=== PATIENT | female | born 1955 | race African-American/Black ===

== ENCOUNTER 2019-10-25 15:09 | Outpatient (CLI) | payer OTHER, SELFPAY ==
--- NOTE | ~2019-10-25 | US_ITS ---
EXAMINATION: US thyroid EXAM DATE: 10/25/2019 15:44 INDICATION: Nontoxic goiter. TECHNIQUE: Multiple grayscale and Doppler images of the thyroid were obtained (by a technologist who performed the scan) and subsequently reviewed. Individual nodules and recommendations may be reporte d in accordance with TI-RADS system as designated by the 2017 ACR White Paper TI-RADS committee. The re is no prior study for comparison. FINDINGS: Right thyroid lobe measures 5.1 x 2.8 x 2.4 cm, the left measuring 4.1 x 2.1 x 1.5 cm. There are mult iple thyroid nodules. Largest nodule (or conglomerate of 2 contiguous nodules) is in the right thyroid lobe measuring 2.8 x 2.3 x 2.3 centimeters, solid (2 points), isoechoic (1 point), wider than tall, smooth margin, withou t echogenic foci, category TR3 for this nodule. The 2 largest left thyroid lobe nodules have spongiform appearance most consistent with colloid cysts , largest measuring 2.0 x 2.4 x 1.1 cm. IMPRESSION: Multinodular goiter. Consider ultrasound-guided biopsy of the largest right thyroid lobe nodule. Reviewed, dictated and finalized at location A. IMPRESSION: Multinodular goiter. Consider ultrasound-guided biopsy of the large st right thyroid lobe nodule.
== END 2019-10-25 15:10 | disposition home or self-care (01) ==
PROVIDERS: PCP Family Medicine; Visit Provider Family Medicine
DX: E04.2 Nontoxic multinodular goiter (principal)
CPT/HCPCS: 76536

== ENCOUNTER 2019-11-01 13:12 | Outpatient (CLI) | payer OTHER, SELFPAY ==
--- NOTE | ~2019-11-01 | US_ITS ---
EXAMINATION: US FNA w image guidance DATE: 11/01/2019 14:12 INDICATION: Nontoxic multinodular goiter. TECHNIQUE: The procedure and its benefits, risks, and benefits were discussed with the patient. Risks specifical ly discussed included bleeding. The patient verbalized understanding of the risks and agreed to proce ed. The neck was prepped and draped in the usual sterile manner. 1% lidocaine was used for local ane sthesia. Five passes were made with a 25G needle into the lesion. Appropriate needle location was d ocumented with continuous sonographic guidance. There were no immediate complications. The patient u nderstood to call the ordering physician for results after a week and a half and verbalized that unde rstanding. FINDINGS: Grayscale ultrasound images demonstrate needles advanced into a 3.8 cm nodule in right thyroid lobe f or biopsy. IMPRESSION: 1. Ultrasound-guided fine needle aspiration of a right thyroid nodule. Reviewed, dictated and finalized at location A.
== END 2019-11-01 13:13 | disposition home or self-care (01) ==
PROVIDERS: Visit Provider Family Medicine
DX: E04.2 Nontoxic multinodular goiter (principal)
CPT/HCPCS: 10005; 88108; 88173; 88305

== ENCOUNTER 2019-12-14 11:03 | Emergency (ER) | payer OTHER, SELFPAY ==
--- NOTE | ~2019-12-14 | CT_ITS ---
EXAMINATION: CT abdomen pelvis w con EXAM DATE: 12/14/2019 13:04 INDICATION: Abdominal pain and distention. TECHNIQUE: Spiral CT of the abdomen and pelvis was performed following intravenous injection of 100 m L Omnipaque 350. Axial, coronal and sagittal images were reviewed. The dose-length product (DLP) fo r this examination was 810.39 mGy-cm. The exposure was tailored according to patient size (auto mA e xposure control), and iterative reconstruction (ASIR) was used as additional dose reduction technique . Correlation is made to CT pelvis from 04/14/2018. FINDINGS: Interval development of large complex cystic mass arising from the pelvis measuring 21 x 16 x 21 centimeters, likely cystic ovarian neoplasm. Again there is fibroid uterus. The liver, spleen, adrenal glands and pancreas are unremarkable. Gallbladder is unremarkable. No bi liary obstruction. Portal and splenic veins are patent. Kidneys enhance symmetrically. There is no hydronephrosis. The bladder is unremarkable. There is no retroperitoneal or pelvic lymphadenopath y. The appendix is normal. The stomach and small bowel are unremarkable. There is expected amount of c olonic stool. No free intraperitoneal gas. The heart is normal in size. There are no pericardial or pleural effusions. The lung bases are unremarkable. There are no osteoblastic or osteolytic les ions identified. IMPRESSION: 1. Complex cystic pelvic mass probably ovarian origin neoplasm measuring up to 21 cm. Recommend CANDY PACKER consult. 2. Fibroid uterus. Reviewed, dictated and finalized at location B.
[2019-12-14 11:09] VITALS: BP 160/90; PULSE 107; RESP 18; TEMP 36.6; O2SAT 95
[2019-12-14 11:21] LABS: Basophils Absolute Auto 0.1 K/mm3 (0.0-0.1); Basophils Percent Auto 0.7 % (0.2-1.2); Eosinophils Absolute Auto 0.7 K/mm3 (0-0.3); Hematocrit 38.2 % (37.0-47.0); Hemoglobin 11.8 g/dL (12.0-15.0); Immature Granulocyte Absolute 0.05 K/mm3 (0.00-0.031); Immature Granulocyte Percent A 0.4 % (0-0.5); Lymphocytes Absolute Auto 2.74 K/mm3 (0.9-3.2); Lymphocytes Percent Auto 22.6 % (18.3-44.2); Mean Corpuscular HGB Conc 30.9 g/dl (32-36); Mean Corpuscular Volume 84.3 fl (80-100); Mean Platelet Volume 11.2 fl (7.4-10.4); Monocytes Absolute Auto 0.8 K/mm3 (0.1-0.6); Monocytes Percent Auto 6.8 % (2.6-8.5); Neutrophils Absolute Auto 7.7 K/mm3 (1.3-6.7); Neutrophils Percent Auto 63.5 % (45.5-73.1); Platelet Count Result 353 k/mm3 (150-375); Red Blood Count 4.53 M/mm3 (4.2-5.4); Red Cell Distribution Width 13.2 % (11.5-14.5); White Blood Count 12.2 K/mm3 (4.5-10.0)
[2019-12-14 11:31] LABS: Add Urine Microscopic? YES; Appearance Urine Cloudy (Clear); Bacteria Urine Trace /hpf; Bilirubin Urine Negative (Negative); Blood Urine 2+ (Negative); Color Urine Yellow (Yellow); Glucose Urine UA Negative (Negative); Ketones Urine Negative (Negative); Leukocyte Esterase Ur 3+ LEU/UL (Negative); Mucus Urine Few /lpf; Nitrate Urine Negative (Negative); Protein Urine Negative (Negative); Specific Grav Ur 1.021 (1.001-1.035); Squamous Epithelial Cell Urine Many /hpf (Few); Urobilinogen Urine Negative mg/dL (<2.0); WBC Urine 21-30 /hpf
[2019-12-14 11:34] LABS: Alanine Aminotransferase 13 U/L (4-35); Albumin Level 4.4 g/dL (3.5-5.1); Alkaline Phosphatase 95 U/L (38-126); Aspartate Amino Transferase 21 U/L (14-36); Bilirubin,Total 0.2 mg/dL (0.2-1.3); Blood Urea Nitrogen 21 mg/dL (7-17); Calcium 9.3 mg/dL (8.4-10.2); Carbon Dioxide 25 mmol/L (22-30); Chloride 103 mmol/L (98-107); Estimated CRCL calculation 45 ml/min; Estimated Glomerular Filt Rate 55; Glucose 167 mg/dL (65-105); Lipase 196 U/L (23-300); Potassium 4.4 mmol/L (3.4-5.0); Sodium 137 mmol/L (137-145)
[2019-12-14 12:04] VITALS: BP 152/83; PULSE 111; RESP 20; O2SAT 99
--- NOTE | 2019-12-14 12:28 | ED.ABDPAIN ---
HPI - Abdominal Pain General Chief Complaint: Abdominal Pain Stated Complaint: abdominal pain Time Seen by Provider: 12/14/19 11:57 Source: patient Mode of arrival: ambulatory Limitations: no limitations History of Present Illness HPI narrative: This patient is a 64 year old female who presents for evaluation of abdominal pain and distension. She noticed in august she felt a knot in her lower abdomen. She has also developed abdominal distension and nausea. She denies fever, chills, diarrhea, urinary difficulties. Her last bowel movement was yesterday and it was normal . She has not gotten evaluation for this because she was afraid of COVID. MD elicited complaint: abdominal pain Related Data Allergies Allergy/AdvReac Type Severity Reaction Status Date / Time aspirin Allergy Intermediate Wheezing Verified 12/14/19 11:11 Review of Systems Review of Systems: All systems reviewed & are unremarkable except as noted in HPI and below Constitutional: Constitutional: Denies chills and Denies fever(s) Respiratory: Respiratory: Denies cough and Denies dyspnea Gastrointestinal: Gastrointestinal: Reports abdominal pain, Reports bloating and Reports nausea Genitourinary: Genitourinary: Reports no additional female genitourinary complaints [facility] Past Medical History Medical History (Updated 12/14/19 @ 15:09 by Mouna Doty MD) Hypertension Hypothyroid Surgical History Surgical History (Updated 12/14/19 @ 12:30 by Mouna Doty MD) History of ankle surgery Hx of tubal ligation Social History Social History (Updated 12/14/19 @ 12:30 by Mouna Doty MD) Smoking status: Never smoker Alcohol intake: current Drinks per week: 1 Gender identity (if verbalized by the patient): Female Exam Narrative: Exam Narrative: GENERAL: Well-appearing, well-nourished, and in no acute distress. HEAD: Normocephalic, atraumatic EYES: PERRLA and EOMI, conjunctiva clear without discharge NECK: Supple, RESPIRATORY: No respiratory distress, Airway patent, Respirations non-labored, Clear to auscultation without rales, rhonchi or wheeze HEART: Regular rate and rhythm. No murmur heard. Normal peripheral pulses. ABDOMEN: Soft, Distended, no fluid wave, mild lower tenderness, normal active bowel sounds. No rebound or guarding, No organomegaly. EXTREMITIES: No edema, normal strength with full range of motion. SKIN: Warm, dry, normal color without rash NEURO: Alert and oriented x3. CN 2-12 grossly intact. No focal deficits. PSYCH: Normal mood and affect. Course Consultations Consultation #1: I spoke with Dr. Swift, Security Threat Analyst, associate professor of economics for Dr. Greenwood. She states if patient is stable she can follow up with Dr. Greenwood. She request we fax patient visit information to office. I have discussed with patient and she is agreeable to discharge. Date: 12/14/19 Time: 15:06 Vital Signs Vital signs: Vital Signs Temperature 97.9 F 12/14/19 11:09 Pulse Rate 107 H 12/14/19 11:09 Respiratory Rate 18 12/14/19 11:09 Blood Pressure 160/90 H 12/14/19 11:09 Pulse Oximetry 95 12/14/19 11:09 Temperature 97.9 F 12/14/19 11:09 Pulse Rate 117 H 12/14/19 15:23 Respiratory Rate 20 12/14/19 15:23 Blood Pressure 160/80 H 12/14/19 15:23 Pulse Oximetry 99 12/14/19 15:23 MDM - Abdominal Pain Lab Data Attestation: I reviewed the patient's lab results. Result diagrams: 12/14/19 11:11 12/14/19 11:11 Labs: Lab Results 12/14/19 12/14/19 12/14/19 Range/Units 11:11 11:11 11:19 WBC 12.2 H (4.5-10.0) K/mm3 RBC 4.53 (4.2-5.4) M/mm3 Hgb 11.8 L (12.0-15.0) g/dL Hct 38.2 (37.0-47.0) % MCV 84.3 (80-100) fl MCH 26.0 (26-34) pg MCHC 30.9 L (32-36) g/dl RDW 13.2 (11.5-14.5) % Plt Count 353 (150-375) k/mm3 MPV 11.2 H (7.4-10.4) fl Immature Gran % (Auto) 0.4 (0-0.5) % Neut % (Auto) 63.5 (45.5-73.1) %
[2019-12-14 13:29] LABS: Lactic Acid Reflex 0.9 mmol/L (0.7-2.1)
[2019-12-14] MEDS: MORPHINE SULFATE 4 MG/ML INJ IV PUSH (14:13)
[2019-12-14] MEDS: ONDANSETRON INJ 4 MG/2 ML VIAL IV PUSH (14:13)
[2019-12-14 14:17] VITALS: BP 151/94; PULSE 113; RESP 20; O2SAT 99
[2019-12-14 15:23] VITALS: BP 160/80; PULSE 117; RESP 20; O2SAT 99
== END 2019-12-14 15:24 | disposition home or self-care (01) ==
PROVIDERS: Emergency Medicine; Emergency Provider General Practice; PCP Family Medicine
DX: D49.89 Neoplasm of unspecified behavior of other specified sites (principal); I10 Essential (primary) hypertension; E03.9 Hypothyroidism, unspecified
CPT/HCPCS: 36415; 74177; 80053; 81001; 83605; 83690; 85025; 87077; 87086; 87088; 96374; 96375; 99284; J2270; J2405; Q9967

== ENCOUNTER 2020-01-28 08:20 | Outpatient (CLI) | payer OTHER, SELFPAY ==
--- NOTE | ~2020-01-28 | MM_ITS ---
EXAMINATION: MM screening nora BI w raeann HISTORY: Screening TECHNIQUE: Craniocaudal and mediolateral oblique 3-D tomosynthesis images were obtained and synthetic 2-D images were generated. CAD analysis was submitted and interpreted. COMPARISON: Comparison to multiple prior studies sequentially, with oldest reviewed study dated 01/20. BREAST PARENCHYMAL COMPOSITION: There are scattered areas of fibroglandular density. FINDINGS: Stable architectural distortion in the left breast. There is no evidence of suspicious mass , calcification, or architectural distortion to suggest malignancy in either breast. There has been n o suspicious interval change. IMPRESSION: 1. No mammographic evidence of malignancy. 2. Recommend routine screening mammography in one year. BI-RADS Category 1: Negative Reviewed, dictated and finalized at location A.
== END 2020-01-28 08:21 | disposition home or self-care (01) ==
LOC: ANHIMG 08:22
PROVIDERS: PCP Family Medicine; Visit Provider Family Medicine
DX: Z12.31 Encounter for screening mammogram for malignant neoplasm of breast (principal)
CPT/HCPCS: 77063; 77067

== ENCOUNTER 2020-05-04 13:00 | Outpatient (CLI) | payer OTHER, SELFPAY ==
[2020-05-04 14:04] LABS: Hemoglobin A1C 6.3 % (<5.7)
== END 2020-05-04 13:01 | disposition home or self-care (01) ==
LOC: ANHLAB 13:06
PROVIDERS: PCP Family Medicine; Visit Provider Family Medicine
DX: E11.9 Type 2 diabetes mellitus without complications (principal)
CPT/HCPCS: 36415; 83036

== ENCOUNTER 2021-04-19 09:04 | Outpatient (CLI) | payer MEDICARE, SELFPAY ==
--- NOTE | ~2021-04-19 | MM_ITS ---
EXAMINATION: MM screening nora BI w raeann HISTORY: Screening mammogram TECHNIQUE: Craniocaudal and mediolateral oblique 3-D tomosynthesis images were obtained and synthetic 2-D images were generated. CAD analysis was submitted and interpreted. COMPARISON: 01/28/2020, 01/26/2019, 01/20/2018 bilateral screening mammogram examinations BREAST PARENCHYMAL COMPOSITION: There are scattered areas of fibroglandular density. FINDINGS: Volume loss of left breast, surgical clips and stable asymmetric spiculated density and arc hitectural distortion or retraction in the upper central left breast consistent with left partial mas tectomy for breast cancer. Findings appear stable since 01/28/2020. There is no evidence of interval suspicious mass, calcification, or new architectural distortion to s uggest malignancy in either breast. There has been no suspicious interval change. IMPRESSION: 1. Status post left partial mastectomy for breast cancer; no evidence of interval malignancy or signi ficant change since 08/28/2019 2. Recommend routine screening mammography in one year. BI-RADS Category 2: Benign finding(s). Reviewed, dictated and finalized at location A. IMPRESSION: 1. Status post left partial mastectomy for breast cancer; no evidence of interv al malignancy or significant change since 08/28/2019 2. Recommend routine screening mammography in one year. BI-RADS Category 2: Benign finding(s).
== END 2021-04-19 09:05 | disposition home or self-care (01) ==
PROVIDERS: PCP Family Medicine; Visit Provider Family Medicine
DX: Z12.31 Encounter for screening mammogram for malignant neoplasm of breast (principal)
CPT/HCPCS: 77063; 77067

== ENCOUNTER 2021-12-03 09:49 | Outpatient (CLI) | payer MEDICARE, MEDICAID, SELFPAY ==
--- NOTE | ~2021-12-03 | US_ITS ---
EXAMINATION: US thyroid DATE: 12/03/2021 10:55 INDICATION: Nontoxic single thyroid nodule TECHNIQUE: Multiple ultrasound images of the thyroid were obtained. COMPARISON: 10/25/2019 FINDINGS: The right thyroid lobe measures 5.6 x 3.2 x 3.4 cm. The left thyroid lobe measures 3.9 x 1.7 x 1.8 c m. 4.3 x 3.0 x 3.1 cm wider than tall solid isoechoic nodule in the right thyroid which is wider moe n tall and without echogenic foci (TI-RADS 3, mildly suspicious , FNA if >=2.5 cm, annual followup is >=1.5 cm). 2.7 x 1.2 x 1.6 cm wider than tall spongiform nodule in the left thyroid lobe (TI-RADS 2, not suspicious, no FNA recommended). There is normal echotexture, echogenicity and vascular flow thr oughout the thyroid gland. IMPRESSION: 1. Multinodular goiter with no significant interval change in a TI-RADS 2 spongiform left thyroid nod ule or of the largest 4.3 cm solid TI RADS 3 right thyroid nodule, the latter with biopsy performed o n 11/01/2019 with pathology read as consistent with benign follicular nodule. Reviewed, dictated and finalized at location A. IMPRESSION: 1. Multinodular goiter with no significant interval change in a TI-RADS 2 spong iform left thyroid nodule or of the largest 4.3 cm solid TI RADS 3 right thyroi d nodule, the latter with biopsy performed on 11/01/2019 with pathology read as consistent with benign follicular nodule.
[2021-12-03 11:00] LABS: Hemoglobin A1C 6.4 % (<5.7)
[2021-12-03 11:03] LABS: Alanine Aminotransferase 18 U/L (6-35); Albumin Level 4.8 g/dL (3.5-5.1); Alkaline Phosphatase 116 U/L (38-126); Anion Gap 9 mmol/L (8-16); Aspartate Amino Transferase 29 U/L (14-36); Bilirubin,Total 0.5 mg/dL (0.2-1.3); Blood Urea Nitrogen 36 mg/dL (7-17); Calcium 9.6 mg/dL (8.4-10.2); Carbon Dioxide 24 mmol/L (22-30); Chloride 104 mmol/L (98-107); Cholesterol 159 mg/dL (0-200); Estimated Glomerular Filt Rate 36; Glucose 157 mg/dL (65-110); HDL Direct 74 mg/dL; Potassium 3.8 mmol/L (3.4-5.0); Sodium 137 mmol/L (137-145); Triglycerides 206 mg/dL (<150)
[2021-12-03 11:14] LABS: LDL Cholesterol Direct 45 mg/dL
[2021-12-03 11:34] LABS: Thyroid Stimulating Hormone Reflex < 0.015 uIU/mL (0.465-4.68)
[2021-12-03 12:14] LABS: Free T4 Free Thyroxine Reflex 1.18 ng/dL (0.78-2.19)
[2021-12-03 13:15] LABS: Total Triiodothyronine (T3) 1.17 NG/ML (0.97-1.69)
== END 2021-12-03 09:50 | disposition home or self-care (01) ==
PROVIDERS: PCP Family Medicine; Visit Provider Physician Assistant
DX: E78.5 Hyperlipidemia, unspecified (principal); E04.2 Nontoxic multinodular goiter; Z13.820 Encounter for screening for osteoporosis; E03.9 Hypothyroidism, unspecified; E11.9 Type 2 diabetes mellitus without complications
CPT/HCPCS: 36415; 76536; 80053; 80061; 83036; 84439; 84443; 84480

== ENCOUNTER 2022-04-22 15:05 | Outpatient (CLI) | payer MEDICARE, MEDICAID, SELFPAY ==
--- NOTE | ~2022-04-22 | DEXA_ITS ---
Bone Density Report Name: MAN MASON Age: 66 Sex: Female Ethnicity: White Date of : 1955 Indication: postmenopausal; screening for osteoporosis; asthma or emphysema; Referring Provider: BARTOLO, BOZENA Baker Study: Bone densitometry was performed. Exam Date: April 22, 2022 Accession number: [id number] Bone Density: Region BMD T-score Z-score Classification AP Spine(L1-L4) 0.980 -0.6 1.3 Normal Femoral Neck (Left) 0.845 0.0 1.6 Normal Total Hip (Left) 0.995 0.4 1.8 Normal Femoral Neck (Right) 0.863 0.1 1.7 Normal Total Hip (Right) 0.983 0.3 1.7 Normal Total Hip Mean 0.989 0.4 1.8 Normal World Health Organization criteria for BMD impression classify patients as: Normal (T-score at or above -1.0), Osteopenia (T-score between -1.0 and -2.5), or Osteoporosis (T-score at or below -2.5). 10-year Fracture Risk: FRAX not reported because: All T-scores for Spine Total, Hip Total, Femoral Neck at or above -1.0 Clinical Information Provided by Patient: Smokes Has 3 or more alcoholic drinks per day Has the following medical conditions: Asthma or Emphysema Patient maximum height was 65 Menopause Age: 50 Drinks caffeinated beverages Onset of menses at age 12 Number of children 2 Impression: The patient has normal bone mass. The patient has risk factors, including: smoking, excessive alcohol use. Discussion: BONE DENSITY IS ABOVE THE MINIMUM DESIRABLE LEVEL AT ALL SKELETAL SITES TESTED. This patient?s bone mineral density is above the minimum desirable level (T-score -1.0 or better) at all sites measured. The patient should follow a healthful lifestyle (good nutrition with adequate calcium and vitamin D, and appropriate weight-bearing exercise). Follow-Up: Consider repeating this study in 5 years or sooner if there is some new clinical indication. Reported by: CJ on 04/22/2022 3:42:00 PM. Reviewed, dictated and finalized at location Shannan VINSON
--- NOTE | ~2022-04-22 | MM_ITS ---
EXAMINATION: MM screening nora BI w raeann HISTORY: Screening TECHNIQUE: Craniocaudal and mediolateral oblique 3-D tomosynthesis images were obtained and synthetic 2-D images were generated. CAD analysis was submitted and interpreted. COMPARISON: Comparison to multiple prior studies sequentially, with oldest reviewed study dated 01/20. BREAST PARENCHYMAL COMPOSITION: Breast composed of scattered areas of fibroglandular density FINDINGS: The breasts are stable. No new masses, calcifications or architectural distortion to sugges t malignancy. Stable architectural distortion in the left breast consistent with previous lumpectomy site with follow-up radiation. IMPRESSION: 1. No evidence for malignancy in either breast. Stable bilateral mammogram. 2. Recommend routine screening mammography in one year. BI-RADS Category 2: Benign finding(s). Reviewed, dictated and finalized at location A.
== END 2022-04-22 15:06 | disposition home or self-care (01) ==
PROVIDERS: PCP Physician Assistant; Visit Provider Physician Assistant
DX: Z12.31 Encounter for screening mammogram for malignant neoplasm of breast (principal); Z78.0 Asymptomatic menopausal state
CPT/HCPCS: 77063; 77067; 77080

== ENCOUNTER 2022-05-01 10:40 | Outpatient (CLI) | payer MEDICARE, MEDICAID, SELFPAY ==
[2022-05-01 11:17] LABS: Basophils Absolute Auto 0.1 K/mm3 (0.0-0.1); Basophils Percent Auto 0.9 % (0.2-1.2); Eosinophils Absolute Auto 0.6 K/mm3 (0-0.3); Eosinophils Percent Auto 6.3 % (0-4.4); Hematocrit 41.2 % (37.0-47.0); Hemoglobin 12.5 g/dL (12.0-15.0); Immature Granulocyte Absolute 0.02 K/mm3 (0.00-0.031); Immature Granulocyte Percent A 0.2 % (0-0.5); Lymphocytes Absolute Auto 2.91 K/mm3 (0.9-3.2); Lymphocytes Percent Auto 33.1 % (18.3-44.2); Mean Corpuscular HGB Conc 30.3 g/dl (32-36); Mean Corpuscular Volume 85.7 fl (80-100); Mean Platelet Volume 11.3 fl (7.4-10.4); Monocytes Absolute Auto 0.5 K/mm3 (0.1-0.6); Monocytes Percent Auto 5.9 % (2.6-8.5); Neutrophils Absolute Auto 4.7 K/mm3 (1.3-6.7); Neutrophils Percent Auto 53.6 % (45.5-73.1); Platelet Count Result 268 k/mm3 (150-375); Red Blood Count 4.81 M/mm3 (4.2-5.4); Red Cell Distribution Width 14.3 % (11.5-14.5); White Blood Count 8.8 K/mm3 (4.5-10.0)
[2022-05-01 11:32] LABS: Albumin Level 4.8 g/dL (3.5-5.1); Anion Gap 16 mmol/L (8-16); Blood Urea Nitrogen 34 mg/dL (7-17); Calcium 9.5 mg/dL (8.4-10.2); Carbon Dioxide 24 mmol/L (22-30); Chloride 103 mmol/L (98-107); Estimated Glomerular Filt Rate 39; Glucose 148 mg/dL (65-110); Phosphorus 3.2 mg/dL (2.5-4.5); Potassium 3.8 mmol/L (3.4-5.0); Sodium 143 mmol/L (137-145)
[2022-05-01 11:37] LABS: Creatinine Urine 245.5 mg/dL; Total Protein Urine Random 20 mg/dL; Ur Ttl Prot Creatinine Ratio 0.08 mg/mg (0-0.20)
[2022-05-01 11:41] LABS: Parathyroid Intact 75.6 pg/mL (7.5-53.5)
[2022-05-01 12:36] LABS: Vitamin D 25 Hydroxy 37.7 ng/mL
== END 2022-05-01 10:41 | disposition home or self-care (01) ==
PROVIDERS: PCP Physician Assistant; Visit Provider Hospitalist
DX: N18.30 Chronic kidney disease, stage 3 unspecified (principal)
CPT/HCPCS: 36415; 80069; 82306; 82570; 83970; 84156; 85025

== ENCOUNTER 2022-09-26 12:29 | Outpatient (CLI) | payer MEDICARE, MEDICAID, SELFPAY ==
--- NOTE | 2022-09-26 12:42 | ECHO_ITS ---
Patient Info Name: Nettie Salazar Age: 67 years : 1955 Gender: Female Ht: 66 in Wt: 160 lbs BSA: 1.85 m2 HR: 77 bpm BP: 139 / 87 mmHg Technical Quality: Fair Exam Date: 09/26/2022 1:03 PM Exam Location: [facility] Patient Status: Outpatient Admit Date: 09/26/2022 Staff Ordering Physician: Adams Mullen DO Android Software Engineer: Tonya Herrera RDCS Attending Provider: Adams Mullen DO Referring Physician: Sebas TAVERAS; Exam Type: CA echo doppler color flow Study Info Indications R06.09 - Other forms of dyspnea Complete two-dimensional, color flow and Doppler transthoracic echocardiogram is performed. Summary 1. Complete two-dimensional, color flow and Doppler transthoracic echocardiogram is performed. 2. Left ventricular chamber dimension is normal. 3. Left ventricular systolic function is normal, estimated at 55-60%. 4. The left ventricular diastolic function is grade I diastolic dysfunction. 5. E/e' 9 is minimally elevated. 6. Global longitudinal strain is abnormal at -13.2%. 7. Left atrial chamber dimension is mildly enlarged. 8. There is trace aortic valve regurgitation. 9. No pulmonary hypertension, estimated pulmonary arterial systolic pressure is 19 mmHg. Left Ventricle E/e' 9 is minimally elevated. Global longitudinal strain is abnormal at -13.2%. Left ventricular chamber dimension is normal. Left ventricular systolic function is normal, estimated at 55-60%. The left ventricular diastolic function is grade I diastolic dysfunction. Right Ventricle Right ventricular chamber dimension is normal. Right ventricular systolic function is normal. Left Atria Left atrial chamber dimension is mildly enlarged. Right Atria Right atrial chamber dimension is normal. Aortic Valve The aortic valve is trileaflet. There is no aortic valve stenosis. There is trace aortic valve regurgitation. Pulmonic Valve There is no pulmonic regurgitation. Mitral Valve There is no mitral valve stenosis. There is no mitral valve regurgitation. Tricuspid Valve There is no tricuspid valve regurgitation. No pulmonary hypertension, estimated pulmonary arterial systolic pressure is 19 mmHg. Pericardium/Pleural There is no pericardial effusion. Inferior Vena Cava Normal inferior vena cava with >50% collapse upon inspiration consistent with normal right atrial pressure, 5 mmHg. Aorta The aortic root size at the sinus of Valsalva is normal. Left Ventricular Outflow Tract Name Value Normal LVOT 2D LVOT Diameter 1.9 cm LVOT Doppler LVOT Peak Gradient 4 mmHg LVOT Mean Gradient 2 mmHg LVOT VTI 20 cm LVOT VTI/AV VTI Ratio 0.9 LVOT Stroke Volume 56 ml LVOT CO 4.1 l/min LVOT CI 2.2 l/min/m2 Pulmonic Valve Name Value Normal
== END 2022-09-26 12:30 | disposition home or self-care (01) ==
LOC: ANHCARD 12:32
PROVIDERS: PCP Physician Assistant; Visit Provider Internal Medicine Cardiovascular Disease
DX: R06.09 Other forms of dyspnea (principal); I51.7 Cardiomegaly
CPT/HCPCS: 93306

== ENCOUNTER 2022-11-13 15:02 | Outpatient (CLI) | payer MEDICARE, MEDICAID, SELFPAY ==
--- NOTE | ~2022-11-13 | XR_ITS ---
EXAMINATION: XR chest 2V 11/13/2022 15:23 INDICATION: Dyspnea PROCEDURE: 2 view chest COMPARISON: Comparison to multiple prior studies sequentially, with oldest reviewed study dated 03/23. FINDINGS: The lungs are clear. The cardiomediastinal silhouette is within normal limits. There are no pleural effusions. There is no pneumothorax suspected. Prominent left nipple shadow. There is sc oliosis. IMPRESSION: 1: NO ACUTE CARDIOPULMONARY DISEASE. Reviewed, dictated and finalized at location B.
== END 2022-11-13 15:03 | disposition home or self-care (01) ==
PROVIDERS: PCP Physician Assistant; Visit Provider Physician Assistant
DX: R93.89 Abnormal findings on diagnostic imaging of other specified body structures (principal)
CPT/HCPCS: 71046

== ENCOUNTER 2023-02-03 15:28 | Outpatient (CLI) | payer MEDICARE, MEDICAID, SELFPAY ==
--- NOTE | ~2023-02-03 | US_ITS ---
EXAMINATION: US thyroid DATE: 02/03/2023 16:30 INDICATION: Goiter. TECHNIQUE: Multiple ultrasound images of the thyroid were obtained. COMPARISON: Ultrasound 12/03/2021, 10/25/19 FINDINGS: The right thyroid lobe measures 4.1 x 3.5 x 3.3 cm. The left thyroid lobe measures 4.5 x 1.8 x 1.5 c m. In the right thyroid lobe, there is a 4.1 cm solid, hypoechoic, wider than tall nodule with mayra h margin without echogenic foci (TI-RADS TR4), stable from 10/25/2019. Biopsy on 11/01/2019 was benign.. In the right thyroid lobe, there is an 11 mm solid, hypoechoic, wider than tall nodule with smooth m argin without echogenic foci (TR4), not seen on prior imaging. In the left thyroid lobe, there is a 2 .5 cm mixed cystic and solid, hypoechoic, wider than tall nodule with smooth margin without echogenic foci (TR3), stable from 10/25/19. IMPRESSION: 1. Multinodular goiter. Consider thyroid ultrasound in one year. Reviewed, dictated and finalized at location A.
== END 2023-02-03 15:29 | disposition home or self-care (01) ==
PROVIDERS: PCP Physician Assistant; Visit Provider Physician Assistant
DX: E04.2 Nontoxic multinodular goiter (principal)
CPT/HCPCS: 76536

== ENCOUNTER 2023-03-05 09:23 | Outpatient (CLI) | payer MEDICARE, MEDICAID, SELFPAY ==
[2023-03-05 10:55] LABS: Appearance Urine Clear (Clear); Bacteria Urine 4+ /hpf; Bilirubin Urine Negative (Negative); Blood Urine Negative (Negative); Color Urine Yellow (Yellow); Glucose Urine UA 3+ mg/dL (Negative); Ketones Urine Negative (Negative); Leukocyte Esterase Ur 1+ LEU/UL (NEGATIVE); Nitrate Urine Positive (Negative); Non Pathogenic Casts 0-2; Protein Urine Negative (Negative); RBC Urine 0-2 /hpf (0-2); Specific Grav Ur 1.022 (1.001-1.035); Squamous Epithelial Cell Urine Few /hpf (Few); Urobilinogen Urine 0.2 mg/dL (<2.0); WBC Urine 21-50 /hpf (0-3); pH Urine 6.5 (5.0-9.0)
[2023-03-05 10:55] LABS: Basophils Absolute Auto 0.1 K/mm3 (0.0-0.1); Eosinophils Absolute Auto 0.6 K/mm3 (0-0.3); Eosinophils Percent Auto 8.8 % (0-4.4); Hematocrit 38.2 % (37.0-47.0); Hemoglobin 11.8 g/dL (12.0-15.0); Immature Granulocyte Absolute 0.01 K/mm3 (0.00-0.031); Immature Granulocyte Percent A 0.1 % (0-0.5); Lymphocytes Absolute Auto 1.97 K/mm3 (0.9-3.2); Lymphocytes Percent Auto 28.8 % (18.3-44.2); Mean Corpuscular HGB Conc 30.9 g/dl (32-36); Mean Corpuscular Volume 84.3 fl (80-100); Mean Platelet Volume 11.5 fl (7.4-10.4); Monocytes Absolute Auto 0.4 K/mm3 (0.1-0.6); Monocytes Percent Auto 5.3 % (2.6-8.5); Neutrophils Absolute Auto 3.8 K/mm3 (1.3-6.7); Platelet Count Result 264 k/mm3 (150-375); Red Blood Count 4.53 M/mm3 (4.2-5.4); Red Cell Distribution Width 14.6 % (11.5-14.5); White Blood Count 6.9 K/mm3 (4.5-10.0)
[2023-03-05 10:57] LABS: Add Urine Microscopic? YES; Creatinine Urine 98.1 mg/dL; Total Protein Urine Random 8 mg/dL; Ur Ttl Prot Creatinine Ratio 0.08 mg/mg (0-0.20)
[2023-03-05 11:02] LABS: Albumin Level 4.4 g/dL (3.5-5.1); Anion Gap 11 mmol/L (8-16); Blood Urea Nitrogen 27 mg/dL (7-17); Calcium 9.4 mg/dL (8.4-10.2); Carbon Dioxide 28 mmol/L (22-30); Chloride 102 mmol/L (98-107); Estimated Glomerular Filt Rate 41; Glucose 144 mg/dL (65-110); Phosphorus 3.5 mg/dL (2.5-4.5); Potassium 4.4 mmol/L (3.4-5.0); Sodium 141 mmol/L (137-145)
[2023-03-05 11:21] LABS: Hemoglobin A1C 6.8 % (<5.7)
[2023-03-05 11:29] LABS: Vitamin D 25 Hydroxy 60.3 ng/mL
== END 2023-03-05 09:24 | disposition home or self-care (01) ==
PROVIDERS: PCP Physician Assistant; Visit Provider Hospitalist
DX: E11.9 Type 2 diabetes mellitus without complications (principal); N18.31 Chronic kidney disease, stage 3a
CPT/HCPCS: 36415; 80069; 81001; 82306; 82570; 83036; 83970; 84156; 85025

== ENCOUNTER 2023-06-30 13:30 | Outpatient (CLI) | payer MEDICARE, MEDICAID, SELFPAY ==
[2023-06-30 14:47] LABS: Thyroid Stimulating Hormone Reflex 0.216 uIU/mL (0.465-4.68)
[2023-06-30 15:26] LABS: Free T4 Free Thyroxine Reflex 1.42 ng/dL (0.78-2.19)
[2023-06-30 16:14] LABS: Total Triiodothyronine (T3) 1.39 NG/ML (0.97-1.69)
== END 2023-06-30 13:31 | disposition home or self-care (01) ==
PROVIDERS: PCP Physician Assistant; Visit Provider Physician Assistant
DX: E03.9 Hypothyroidism, unspecified (principal)
CPT/HCPCS: 36415; 84439; 84443; 84480

== ENCOUNTER 2023-10-01 09:03 | Outpatient (CLI) | payer MEDICARE, MEDICAID, SELFPAY ==
[2023-10-01 10:15] LABS: Basophils Absolute Auto 0.1 K/mm3 (0.0-0.1); Basophils Percent Auto 0.9 % (0.2-1.2); Eosinophils Absolute Auto 0.7 K/mm3 (0-0.3); Eosinophils Percent Auto 10.4 % (0-4.4); Hematocrit 39.7 % (37.0-47.0); Hemoglobin 12.3 g/dL (12.0-15.0); Immature Granulocyte Absolute 0.02 K/mm3 (0.00-0.031); Immature Granulocyte Percent A 0.3 % (0-0.5); Lymphocytes Absolute Auto 2.01 K/mm3 (0.9-3.2); Mean Corpuscular Hemoglobin 26.3 pg (26-34); Mean Platelet Volume 11.2 fl (7.4-10.4); Monocytes Absolute Auto 0.5 K/mm3 (0.1-0.6); Monocytes Percent Auto 7.2 % (2.6-8.5); Neutrophils Absolute Auto 3.4 K/mm3 (1.3-6.7); Neutrophils Percent Auto 51.2 % (45.5-73.1); Platelet Count Result 248 k/mm3 (150-375); Red Blood Count 4.67 M/mm3 (4.2-5.4); Red Cell Distribution Width 14.9 % (11.5-14.5); White Blood Count 6.7 K/mm3 (4.5-10.0)
[2023-10-01 10:18] LABS: Appearance Urine Clear (Clear); Bacteria Urine 3+ /hpf; Bilirubin Urine Negative (Negative); Blood Urine Negative (Negative); Color Urine Yellow (Yellow); Glucose Urine UA 3+ mg/dL (Negative); Ketones Urine Negative (Negative); Leukocyte Esterase Ur 1+ LEU/UL (Negative); Nitrate Urine Negative (Negative); Non Pathogenic Casts 0-2; Protein Urine Negative (Negative); RBC Urine 0-2 /hpf (0-2); Squamous Epithelial Cell Urine Occasional /hpf (Few); WBC Urine 51-100 /hpf (0-3); pH Urine 6.5 (5.0-9.0)
[2023-10-01 10:19] LABS: Add Urine Microscopic? YES
[2023-10-01 10:32] LABS: Albumin Level 4.4 g/dL (3.5-5.1); Anion Gap 9 mmol/L (4-12); Blood Urea Nitrogen 25 mg/dL (7-17); Calcium 9.4 mg/dL (8.4-10.2); Carbon Dioxide 28 mmol/L (22-30); Chloride 103 mmol/L (98-107); Estimated Glomerular Filt Rate 39; Glucose 142 mg/dL (65-110); Phosphorus 3.4 mg/dL (2.5-4.5); Potassium 4.2 mmol/L (3.4-5.0); Sodium 140 mmol/L (137-145)
[2023-10-01 10:44] LABS: Creatinine Urine 106.2 mg/dL; Total Protein Urine Random 12 mg/dL; Ur Ttl Prot Creatinine Ratio 0.11 mg/mg (0-0.20)
[2023-10-01 10:48] LABS: Hemoglobin A1C 6.7 % (<5.7)
[2023-10-01 11:34] LABS: Vitamin D 25 Hydroxy 33.9 ng/mL
== END 2023-10-01 09:04 | disposition home or self-care (01) ==
PROVIDERS: PCP Physician Assistant; Visit Provider Hospitalist
DX: N18.31 Chronic kidney disease, stage 3a (principal); N39.0 Urinary tract infection, site not specified; E11.8 Type 2 diabetes mellitus with unspecified complications
CPT/HCPCS: 36415; 80069; 81001; 82306; 82570; 83036; 83970; 84156; 85025; 87077; 87086; 87186

== ENCOUNTER 2023-10-03 07:34 | Outpatient (CLI) | payer MEDICARE, MEDICAID, SELFPAY ==
--- NOTE | ~2023-10-03 | MM_ITS ---
EXAMINATION: MM screening nora BI w raeann HISTORY: Screening TECHNIQUE: Craniocaudal and mediolateral oblique 3-D tomosynthesis images were obtained and synthetic 2-D images were generated. CAD analysis was submitted and interpreted. COMPARISON: Comparison to multiple prior studies sequentially, with oldest reviewed study dated 12/2019. BREAST PARENCHYMAL COMPOSITION: Not dense: There are scattered areas of fibroglandular density. FINDINGS: Stable lumpectomy site in the upper inner quadrant of the left breast. There is no evidence of suspicious mass, calcification, or architectural distortion to suggest malignancy in either breas t. There has been no suspicious interval change. IMPRESSION: 1. No mammographic evidence of malignancy. 2. Recommend routine screening mammography in one year. BI-RADS Category 2: Benign finding(s). Reviewed, dictated and finalized at location A.
== END 2023-10-03 07:35 | disposition home or self-care (01) ==
LOC: ANHIMG 07:37
PROVIDERS: PCP Physician Assistant; Visit Provider Physician Assistant
DX: Z12.31 Encounter for screening mammogram for malignant neoplasm of breast (principal)
CPT/HCPCS: 77063; 77067

== ENCOUNTER 2024-06-03 08:26 | Outpatient (CLI) | payer MEDICARE, MEDICAID, SELFPAY ==
[2024-06-03 10:12] LABS: Alanine Aminotransferase 18 U/L (6-35); Albumin Level 4.3 g/dL (3.5-5.1); Alkaline Phosphatase 117 U/L (38-126); Anion Gap 4 mmol/L (4-12); Aspartate Amino Transferase 26 U/L (14-36); Bilirubin,Total 0.5 mg/dL (0.2-1.3); Blood Urea Nitrogen 22 mg/dL (7-17); Calcium 9.2 mg/dL (8.4-10.2); Carbon Dioxide 32 mmol/L (22-30); Chloride 103 mmol/L (98-107); Cholesterol 197 mg/dL (0-200); Estimated Glomerular Filt Rate 49; Glucose 134 mg/dL (65-110); HDL Direct 76 mg/dL; Potassium 4.2 mmol/L (3.4-5.0); Sodium 139 mmol/L (137-145); Triglycerides 193 mg/dL (<150)
[2024-06-03 10:17] LABS: Hemoglobin A1C 7.2 % (<5.7)
[2024-06-03 10:23] LABS: LDL Cholesterol Direct 78 mg/dL
== END 2024-06-03 08:27 | disposition home or self-care (01) ==
PROVIDERS: PCP Physician Assistant; Visit Provider Internal Medicine Cardiovascular Disease
DX: E78.5 Hyperlipidemia, unspecified (principal); E11.9 Type 2 diabetes mellitus without complications
CPT/HCPCS: 36415; 80053; 80061; 83036

== ENCOUNTER 2024-11-23 11:54 | Outpatient (CLI) | payer MEDICARE, MEDICAID, SELFPAY ==
--- OUTSIDE RECORDS SUMMARY | 2024-11-23 11:59 | XMS_ITS | Clinical Summary ---
Author Organization [facility] Address [address] [address] Care Team Providers Care Rn Informatics Name Role Phone Hilda Richardson MD Primary Care Provider [phone] [facility],non-owned Affiliates and Associated Physician Practices is amultiple site organization consisting of ambulatory clinics and hospital sitesin [place], [place], [place] and [place]. This disclosure is being madepursuant to the Care Everywhere program and may not contain all information available regarding this patient. Last updated 18.[facility] Allergies Active Allergy Reactions Criticality Noted Date Comments Aspirin Shortness of Breath High 05/29/2015 Medications * Be aware that medications may not be up to date on this document. Alwaysverify current medications with the patient. SYMBICORT 160-4.5 MCG/ACT inhaler Inhale 2 puffs by mouth 2 times daily 9 Active albuterol (PROVENTIL;VENT ABHIJEET) (2.5 MG/3ML) 0.083% nebulizer solution Inhale 2.5 mg by mouth 5 Active acetaminophen (TYLENOL) 325 MG tablet Take 2 (two) tablets by mouth every 6 hours as needed for Fever or Pain 1 Active FLUoxetine (PROZAC) 20 MG capsule Take 1 (one) capsule by mouth once daily 30 capsule 2 Active levothyroxine (SYNTHROID) 100 MCG tablet Take 1 (one) tablet by mouth daily before breakfast 30 tablet 2 Active metoprolol succinate XL 24hr (TOPROL XL) 50 MG tablet Take 1 (one) tablet by mouth at bedtime 30 tablet 2 Active simvastatin (ZOCOR) 20 MG tablet Take 1 (one) tablet by mouth at bedtime 30 tablet 2 Active triamterene-hyd roCHLOROthiazid e (MAXZIDE-25) 37.5-25 MG tablet Take 1 (one) tablet by mouth once daily 30 tablet 2 Active oxyCODONE, immediate release, (ROXICODONE) 5 MG tablet 1 Active nicotine (NICODERM CQ) 14 MG/24HR patch every 24 hours Activ e Acetaminophen-C odeine 300-30 MG Take 1 tablet by mouth every 4 hours as needed Active metFORMIN (GLUCOPHAGE) 500 MG tablet 1 Active omeprazole (PRILOSEC) 20 MG capsule Take 1 (one) capsule by mouth daily before breakfast 30 capsule 2 Active losartan (COZAAR) 100 MG tablet Take 1 (one) tablet by mouth once daily 30 tablet 2 Active spironolactone (ALDACTONE) 25 MG tablet TAKE ONE OR TWO TABLETS BY MOUTH DAILY DIRECTED 30 tablet 2 Active Active Problems Problem Noted Date Diagnosed Date Abdominal pain, generalized 06/14/2021 Low hemoglobin 06/14/2021 Encounter for management of wound VAC 06/14/2021 Pre-op evaluation 05/28/2021 Vesicovaginal fistula 05/08/2020 Acute DVT (deep venous thrombosis) 01/21/2020 Ankle pain 01/21/2020 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 Overview (01/21/2020): Left side Hx of radiation Not seeing oncologist any more 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 Moderate asthma with acute exacerbation 06/03/20 18 Exertional shortness of breath 03/11/2017 Essential hypertension 03/11/2017 RUQ pain 01/28/2017 Tachycardia 01/28/2017 Hypokalemia 12/11/2016 Reactive depression (situational) 12/11/2016 Asthma, mild persistent 05/29/2015 Gastroesophageal reflux disease with esophagitis 04/27/2015 Tobacco abuse 03/26/2015 Type 2 diabetes mellitus without complication Post-operative pain Acute postoperative pulmonary insufficiency Mild protein-calorie malnutrition Gastroesophageal reflux disease GINA (acute kidney injury) Thyroid disease Acute blood loss as cause of postoperative anemi a Immunizations Immunization Administration Dates Next Due Covid Pfizer primary monoval ent 12+ yr 0.3mL Purple cap 12/04/2020,11/07/2020 Family History Medical History Relation Name Comments Cancer - Colon Sister Relation Name Status Comments Sister Social History Tobacco Use Types Packs/Day Years Used Date Smoking Tobacco: Every Day Cigarettes 0.3 50.5 Started: 05/28/1974 Smokeless Tobacco: Never Tobacco Cessation:Ready to Q uit: No; Counseling Given: No Comments:2 cigarettes per day Alcohol Use Standard Drinks/Week Comments Yes 5 (1 standard drink = 0.6 oz pur e alcohol) daily drink AUDIT-C Answer Date Recorded Q1: How often do you have a drink containing alcohol? 4 or more times a week 05/29/2021 Q2: How many drinks containi ng alcohol do you have on a typical day when you are drinking? 1 or 2 Q3: How often do you have si x or more drinks on one occasion? Never 05/29/2021 Comments No Sex and Gender Information Value Date Recorded Sex Assigned at Not on file Legal Sex Female 8:44 PM CDT Gender Identity Not on file Sexual Orientation Not on file Last Filed Vital Signs Vital Sign Reading Time Taken Comments Blood Pressure 142/83 08/01/2021 1:07 PM ASSESSMENT NURSE PRACTITIONER Pulse 93 08/01/2021 1:07 PM ASSESSMENT NURSE PRACTITIONER Temperature 36.6 C (97.8 F) 06/27/2021 1:22 PM ASSESSMENT NURSE PRACTITIONER Respiratory Rate 18 06/19/2021 1:32 PM ASSESSMENT NURSE PRACTITIONER Oxygen Saturation 99% 06/27/2021 1:22 PM ASSESSMENT NURSE PRACTITIONER Inhaled Oxygen Concentration - - Weight 64.9 kg (143 lb) 08/01/2021 1:07 PM ASSESSMENT NURSE PRACTITIONER Height 167.6 cm (5' 6) 08/01/2021 1:07 PM ASSESSMENT NURSE PRACTITIONER Body Mass Index 23.08 08/01/2021 1:07 PM ASSESSMENT NURSE PRACTITIONER Plan of Treatment Health Maintenance Due Date Last Done Comments BONE DENSITY TESTING 1955 COLOGUARD (AGES 45-75) - COLON CA SCREENING 1955 COLON MONITORING 1955 COLONOSCOPY - COLON CA SCREENING 1955 CT COLONOGRAPHY - COLON CA SCREENING 1955 Colorectal Cancer Screening 1955 FIT - COLON CA SCREENING 1955 FLEX SIG - COLON CA SCREENING 1955 MAMMOGRAM 1955 HEPATITIS C SCREENING 08/04/1973 DTAP/TDAP/TD VACCINES (1 - Tdap) 1974 PNEUMOCOCCAL VACCINE 50+ (1 of 2 - PCV) 1974 ZOSTER VACCINE (1 of 2) 2005 Respiratory Syncytial Virus (RSV) Vaccine Pt: or over 60 yrs (1 - Risk 60-74 years 1-dose series) 2015 DIABETES RETINOPATHY SCREENING 01/21/2020 DIABETES-FOOT EXAM WITH MONOFILAMENT 01/21/2020 DIABETES-HGB A1C 11/28/2021 05/30/2021, , 06/03/2018, Additional history exists DIABETES-SERUM CREATININE 06/17/20222020, 06/16/2021, 06/14/2021, Additional history exists COVID-19 VACCINE ( season) 2024 12/04/2020, 11/07/2020 DEPRESSION SCREENING 06/23/2024 DIABETES - URINE PROTEIN SCREENING 06/23/2024 MEDICARE AWV CALENDAR YEAR 2024 INFLUENZA VACCINE (Season Ended) 2025 03/11/2017 HEPATITIS B VACCINE Aged Out No longe r eligible based on patient's age to complete this topic HIB VACCINE Aged Out No longer eligi ble based on patient's age to complete this topic HPV VACCINE Aged Out No longer eligi ble based on patient's age to complete this topic MENINGOCOCCAL (Group B) VACCINE SHARED DECISION-MAKING Aged Out No longer eligible based on patient's age to complete this topic MENINGOCOCCAL GROUPS A/C/Y/W VACCINE Aged Out No longer eligible based on patient's age to complete this topic Medical Devices Implanted Type Area Industrial Gas Servicer Supervisor Device Identifier Shelf Expiration Date Model / Serial / Lot Seal Tisseel Prima 1 Prefil Frz 4ml - [id number] Implanted:Qty: 1 on 05/08/2020 by Patrice Jones MD at [facility] N/A: Abdomen [employer] 10/20/2021 [id number] / [id number] / [id number] Kit Tissue Clsr Duo Tssl 4ml Lf - [id number] Implanted:Qty: 1 on 11/02/2020 by Patrice Jones MD at [facility] N/A: Vagina [employer] 12/20/2021 [id number] / [id number] / [id number] Procedures Procedure Name Priority Date/Time Associated Diagnosis Comments BASIC METABOLIC PANEL (CALCIUM TOTAL) Timed 06/17/2021 4:23 AM ASSESSMENT NURSE PRACTITIONER Post-operative pain HEMOGLOBIN A1C Routine 05/30/2021 4:26 AM ASSESSMENT NURSE PRACTITIONER Vesicovaginal fistula Moderate persistent asthma with acute exacerbation from Last 3 Months or Most Recently Relevant to Health Maintenance Results * (ABNORMAL) BASIC METABOLIC PANEL (CALCIUM TOTAL) (06/17/2021 4:23 AM ASSESSMENT NURSE PRACTITIONER) BUN 8 7 - 26 mg/dL 06/17/2021 6:04 AM [facility] Creatinine 1.08(H) 0.56 - 0.96 mg/dL 06/17/2021 6:04 AM [facility] Sodium 144 136 - 145 mmol/L 06/17/2021 6:04 AM [facility] Potassium 3.7 3.5 - 4.5 mmol/L 06/17/2021 6:04 AM [facility] Chloride 110(H) 98 - 107 mmol/L 06/17/2021 6:04 AM [facility] CO2 28 22 - 29 mmol/L 06/17/2021 6:04 AM [facility] Glucose 113 70 - 115 mg/dL 06/17/2021 6:04 AM [facility] Calcium 8.7 8.4 - 10.2 mg/dL 06/17/2021 6:04 AM [facility] Anion Gap 10 8 - 18 06/17/2021 6:04 AM [facility] BUN/Creatinine Ratio 7 7 - 23 06/17/2021 6:[address] [facility] Osmolality Calculated 297 270 - 300 mOsm/kg 06/17/2021 6:[address] [facility] eGFR by CKD-EPI 54(L) >=90 mL/min/1.7 3 m2 06/17/2021 6:[address] [facility] Blood BLOOD SPECIMEN / Unknown Lab Venipuncture / Unknown 06/17/2021 4:23 AM ASSESSMENT NURSE PRACTITIONER 06/17/2021 5:29 AM [facility] us Marcia Ryder MD LAB - CHEMISTRY ORDERAB LES Final Result [facility] [address] [place] [address], [facility] [phone] * HEMOGLOBIN A1C (05/30/2021 4:26 AM [facility]) Hemoglobin A1c 6.2 4.4 - 6.3 % 05/30/2021 11:[address] [facility] Comment:Hemoglobin variant d etected. Abnormal hemoglobin may not form glycated product at the same rate as hemoglobin A and/or hemoglobin variant may interfere with the accurate measurement of HbA1C. Consider measurement of HbA1C by alternative method. Recommend hemoglobin electrophoresis to evaluate the variant hemoglobin if clinically indicated. Estimated Average Glucose 131 mg/dL 05/30/2021 11:[address] [facility] Comment: HbA1c Interpretation: Treatment target values recommended by ADA and other clinical organizations should be used to evaluate metabolic control in patients. Treatment Target Values: Normal : < 5.7% Pre-diabetes: 5.7-6.4% Diabetes: Equal to or greater than 6.5% Reference: [place] [employer] Standards of Care in Diabetes -2014 In patients 70 years and older consider HbA1c target range of 7.0-7.5% Reference: Diabetes Mellitus in Older People: Position Statement on behalf of the International Association of Gerontology and Geriatrics (IAGG), the Diabetes Working Democrat for Older People (EDWPOP), and the International Task Force of Experts in Diabetes. Alfonso Baker, et al. J [place] [employer] Association. 2012 Test results diagnostic of diabetes should be repeated for confirmation. The Sebia Capillary 2 assay for the measurement of HbA1c is a National Glycohemoglobin Standardization Program (NGSP)certified method. Blood BLOOD SPECIMEN / Unknown Venipuncture / Unknown 05/30/2021 4:26 AM ASSESSMENT NURSE PRACTITIONER 05/30/2021 4:30 AM ASSESSMENT NURSE PRACTITIONER Patrice Jones MD LAB - CHEMISTRY ORDERABLES Final Result Performing Organization Address City/State/[facility] Co de Phone Number [facility] [address] [place] [address], [facility] [phone] from Last 3 Months or Most Recently Relevant to Health Maintenance Insurance MEDICAID [facility] MEDICAID - [place] MEDICARE [facility] MEDICARE ADV Advance Directives Documents on File Type Date Recorded Patient Chronic Care Nurse Expl anation Adv Directive/Living Will/POA 06/20/2021 9:57 AM Adv Directive/Living Will/POA 06/20/2021 9:57 AM * Full Code (Latest Code Status on File) Date Activated Date Inactivated Comments 06/15/2021 5:24 AM 06/19/2021 3:00 PM * Full Code Date Activated Date Inactivated Comments 05/28/2021 3:54 PM 06/13/2021 2:24 PM * Full Code Date Activated Date Inactivated Comments 05/08/2020 10:32 PM 05/11/2020 7:20 PM Care Teams Rn Informatics Relationship Specialty Start Date End Date Hilda Richardson MD [facility] [place] [address] PCP - General 11/19/19
--- OUTSIDE RECORDS SUMMARY | 2024-11-23 11:59 | XMS_ITS ---
Author Organization [facility] Address [address] [place] [address] Care Team Providers Care Roofing Plant Supervisor Name Role Phone Hilda Richardson MD Primary Care Provider [phone]- [phone] Active Problems Problem Noted Date Diagnosed Date [...] loss as cause of postoperative anemi a Current Treatment and Therapy Plans No current plan information found. Past Treatment and Therapy Plans No past plan information found. Lifetime Dose Tracking * Chemical Lifetime Dose Automatic Entry Manual Entr y Dose Length Product 320 mGy-cm 320 mGy-cm 0 mGy-cm
--- OUTSIDE RECORDS SUMMARY | 2024-11-23 11:59 | XMS_ITS | Clinical Summary ---
Author Organization [facility] Address [address] [place] [address] Phone Care Team Providers Care Tank Car Mechanic Name Role Phone Esa Ga MD Unavailable Shamika Granados MD Primary Care Provider [phone] Allergies Active Allergy Reactions Criticality Noted Date Comments Aspirin Shortness of Breath High 05/29/2015 Hydrochlorothiazide Other (see Comments) 2016 Low K+ Ibuprofen Other (see Comments) High Wheezing Medications albuterol (PROVENTIL, VENTOLIN) (2.5 MG/3ML) 0.083% Nebulizer Soln 2.5 mg by Nebulization route every 4 hours as needed. 5 Active fluticasone-ashlyn meterol (ADVAIR DISKUS) 250-50 MCG/DOSE AEROSOL POWDER, BREATH ACTIVATED take 1 Puff by inhalation 2 times daily. Active nicotine (NICODERM CQ) 14 MG/24HR PATCH 24 HR 1 Patch by Transdermal route daily. 30 Patch 0 5 Active acetaminophen (TYLENOL) 325 MG Tablet Take 325 mg by mouth as needed. Active Blood Glucose Monitoring Suppl (ONE TOUCH ULTRA 2) W/DEVICE Kit 0 5 Active spironolactone (ALDACTONE) 25 MG Tablet TAKE 1/2 TABLET BY MOUTH DAILY 15 Tab 2 7 Active losartan (COZAAR) 100 MG Tablet TAKE ONE TABLET BY MOUTH DAILY. 90 Tab 1 7 Active NIFEdipine CR (PROCARDIA-XL) 90 MG TABLET SR 24 HR TAKE 1 TABLET BY MOUTH EVERY DAY 90 Tab 8 Active metFORMIN (GLUCOPHAGE-XR) 500 MG TABLET SR 24 HR TAKE 1 TABLET BY MOUTH DAILY 180 Tab 8 Active Active Problems Problem Noted Date Diagnosed Date Moderate asthma with acute exacerbation 06/03/20 18 High blood pressure 03/11/2017 Exertional shortness of breath 03/11/2017 RUQ pain 01/28/2017 Tachycardia 01/28/2017 Reactive depression (situational) 12/11/2016 Hypokalemia 12/11/2016 Asthma in adult 05/29/2015 Asthma, mild persistent 05/29/2015 Gastroesophageal reflux disease with esophagitis 04/27/2015 Type 2 diabetes mellitus without complication Tobacco abuse 03/26/2015 Carcinoma in situ of breast Overview (12/04/2016): Left side Hx of radiation Not seeing oncologist any more Acute DVT (deep venous thrombosis) (<HCC>), hx o f Ankle pain Resolved Problems Problem Noted Date Diagnosed Date Resolved Date Precordial pain 04/27/2015 12/04/2016 Abnormal EKG 04/27/2015 03/11/2017 Asthma with acute exacerbation in adult 03/26/2015 12/04/2016 Leukocytosis 03/26/2015 03/11/2017 Eosinophilia 03/26/2015 12/11/2016 Anemia, iron deficiency 11/22 Cellulitis 12/04/2016 Hypertensive heart disease w ithout heart failure 03/11/2017 Immunizations Immunization Administration Dates Next Due Influenza Vaccine greater than 3 yrs 03/11/2017 Family History Medical History Relation Name Comments Cancer Father Diabetes Mother Lupus Mother Breast Cancer Sister Relation Name Status Comments Father Mother Sister Social History Tobacco Use Types Packs/Day Years Used Date Smoking Tobacco: Former Cigarettes Smokeless Tobacco: Never Alcohol Use Standard Drinks/Week Comments No 0 (1 standard drink = 0.6 oz pur e alcohol) PHQ-2 Answer Date Recorded PHQ-2 Score 0 03/06/2019 Comments No Sex and Gender Information Value Date Recorded Sex Assigned at Not on file Legal Sex Female 8:45 PM CDT Gender Identity Not on file Sexual Orientation Not on file 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 Not on file Not on file Not on file Last Filed Vital Signs Vital Sign Reading Time Taken Comments Blood Pressure 160/93 06/03/2018 8:19 AM [facility] Pulse 113 06/03/2018 8:19 AM [facility] Temperature 36.7 C (98.1 F) 06/03/2018 8:19 AM [facility] Respiratory Rate 18 06/03/2018 8:19 AM [facility] Oxygen Saturation 95% 06/03/2018 8:19 AM [facility] Inhaled Oxygen Concentration - - Weight 74.5 kg (164 lb 4 oz) 06/03/2018 1:30 AM [facility] Height 170.2 cm (5' 7) 06/03/2018 1:30 AM [facility] Body Mass Index 25.73 06/03/2018 1:30 AM [facility] Plan of Treatment Health Maintenance Due Date Last Done Comments Diabetes: Foot Exam 1955 TdaP Immunization 1955 Pneumococcal Immunization (50+ years) (1 of 2 - PCV) 1974 Colonoscopy 2000 Colorectal Cancer Screening 2000 Cologuard 2005 Immunochemical Fecal Occult Blood 2005 Zoster Immunization (1 of 2) 2005 Respiratory Syncytial Virus (RSV) Immunization (Adult) (1 - Risk 60-74 years 1-dose series) 2015 Mammogram 07/18/2017 07/18/2016, 06/22/2015 Diabetes: Eye Exam 12/25/2017 12/25/2016 Diabetes: Hemoglobin A1c 12/02/2018 018, 03/09/2017, 12/08/2016 Diabetes: Nephropathy Screening 06/03/2019 06/03/2018, 06/02/2018, 02/18/2017, Additional history exists SARS-COV-2 Immunization ( season) 2024 12/04/2020, 11/07/2020 Influenza Immunization (Season Ended) 2025 03/11/2017 Hepatitis B Immunization Aged Out No longer eligible based on patient's age to complete this topic Human Papillomavirus (HPV) Immunization Aged Out No longer eligible based on patient's age to complete this topic Meningococcal Immunization (ACWY) Aged Out No longer eligible based on patient's age to complete this topic Rotavirus Immunization Aged Out No lo nger eligible based on patient's age to complete this topic Procedures Procedure Name Priority Date/Time Associated Diagnosis Comments CMP (COMPREHENSIVE METABOLIC PANEL) STAT 06/03/2018 3:27 AM [facility] HEMOGLOBIN A1C W/ ESTIMATED GLUCOSE STAT 06/03/2018 3:27 AM [facility] HM DILATED EYE EXAM Routine 12/25/2016 [facility] SCREENING BILATERAL DIGITAL W CAD Routine 07/18/2016 10:12 AM [facility] Visit for screening mammogram from Last 3 Months or Most Recently Relevant to Health Maintenance Results * (ABNORMAL) Hemoglobin A1C w/ Estimated Glucose (06/03/2018 3:27 AM [facility]) HGB-A1C 6.5(H) 4.0 - 6.0 % 06/03/2018 5:01 AM [facility] Blood specimen (specimen) Venipuncture / Unknown 06/03/2018 3:27 AM [facility] 06/03/2018 3:38 AM [facility] - 06/03/2018 5:01 AM [facility] Per ADA recommendations, HbA1c <7% is the goal for glycemic control, >8% suggests additional action needed. ([employer] [place] HbA1c method) This assay measures any hemoglobin variants that are glycated at the beta-chain N-terminus and have epitopes identical to that of HbA1c. Hemoglobins D, C, E and S do not interfere with this method. Samples containing >10% Hemoglobin F will yield lower than expected results. The effect of other variant hemoglobins has not been assessed. us Girish Stevens MD CHEMISTRY ORDERABLES F inal Result [address] [address] * (ABNORMAL) CMP (Comprehensive Metabolic Panel) (06/03/2018 3:27 AM [facility]) SODIUM 137 133 - 145 mmol/L 06/03/2018 4:11 AM [facility] POTASSIUM 4.0 3.5 - 5.1 mmol/L 06/03/2018 4:11 AM [facility] CHLORIDE 107 96 - 108 mmol/L 06/03/2018 4:11 AM [facility] CO2, VENOUS 21 21 - 32 mmol/L 06/03/2018 4:11 AM [facility] ANION GAP 13.0 10.0 - 20.0 mmol/L 06/03/2018 4:11 AM [facility] GLUCOSE 377(H) 80 - 115 mg/dL 06/03/2018 4:11 AM [facility] BUN 13 6 - 19 mg/dL 06/03/2018 4:11 AM [facility] CREATININE, BLOOD 0.70 0.40 - 1.10 mg/dL 06/03/2018 4:11 AM [facility] BUN/CREATININE RATIO 19 12 - 20 ratio 06/03/2018 4:11 AM [facility] TOTAL PROTEIN 6.5 6.0 - 8.2 g/dL 06/03/2018 4:11 AM [facility] ALBUMIN 2.9(L) 3.4 - 4.8 g/dL 06/03/2018 4:11 AM [facility] CALCIUM 8.0(L) 8.8 - 10.0 mg/dL 06/03/2018 4:11 AM [facility] Comment: Calcium low. Corrected calcium to follow. T BILI <0.1 0.0 - 1.0 mg/dL 06/03/2018 4:11 AM [facility] SGOT (AST) 10 0 - 37 U/L 06/03/2018 4:11 AM [facility] SGPT (ALT) 18 12 - 45 U/L 06/03/2018 4:11 AM [facility] ALKALINE PHOSPHATASE 97 39 - 117 U/L 06/03/2018 4:11 AM [facility] GFR, EST. NONAFRICAN >60 06/03/2018 4:11 AM [facility] Comment: Reference interval for MDRD GFR: GFR >=60: Satisfactory kidney function GFR <60: Chronic kidney disease GFR <15: Kidney failure Estimated GFR may be less reliable in patients >70yr, women, patients with serious comorbid conditions, or patients with extremes of body size, muscle mass, or nutritional status. Revised 09/16/07 (National Kidney Disease Education Program) GFR, EST. >60 >=60 018 4:11 AM [facility] Comment: Reference interval for MDRD GFR: GFR >=60: Satisfactory kidney function GFR <60: Chronic kidney disease GFR <15: Kidney failure Estimated GFR may be less reliable in patients >70yr, women, patients with serious comorbid conditions, or patients with extremes of body size, muscle mass, or nutritional status. Revised 09/16/07 (National Kidney Disease Education Program) Blood specimen (specimen) Venipuncture / Unknown 06/03/2018 3:27 AM [facility] 06/03/2018 3:41 AM [facility] Narrative [facility] - 06/03/2018 4:11 AM [facility] Venipuncture should occur prior to sulfasalazine and/or sulfapyridine administration due to the potential for falsely depressed results for ALT and AST. Glucose can be falsely depressed after administration of sulfasalazine, and falsely elevated with administration of sulfapyridine. Girish Stevens MD CHEMISTRY ORDERABLES F inal Result [address] [address] * DILATED EYE EXAM (12/25/2016) us Shamika Russell MD PROCEDURE/MINOR SURGICAL ORDER KARYNA Final Result * [facility] SCREENING BILATERAL DIGITAL W CAD (07/18/2016 10:12 AM [facility]) Anatomical Region Laterality Modality breast Bilateral Mammography 07/18/2016 10:2 3 AM [facility] Impressions 07/18/2016 12:50 PM [facility] No mammographic evidence of malignancy. ASSESSMENT: BI-RADS 2, benign findings. RECOMMENDATIONS: Annual screening mammography. Given the patient's high risk and dense glandular tissue, a high risk screening ultrasound is recommended, which will be performed later today. Emily Bravo M.D./ /[id number]/07/18/2016 10:23:45CST//07/18/2016 10:31:54CST Cc: Narrative 07/18/2016 12:50 PM [facility] PATIENT NAME: NETTIE SALAZAR : 1955 DOCUMENT TYPE: RADIOLOGY ORDER NUMBER/RESULT CODE ORDERING PHYSICIAN [id number] ALE TANNER DATE AND TIME OF DICTATION RADIOLOGIST 07/18/2016 10:23:45CST Emily Lawrence EXAM DESCRIPTION [facility] SCREENING BILATERAL DIGITA EXAMINATION: Bilateral digital screening mammogram with CAD. HISTORY: A 60-year-old high-risk female with dense glandular tissue presenting for a screening mammogram. TECHNIQUE: Full-field CC and MLO views of both breasts were obtained with CAD over read. COMPARISON: 06/22/2015 through 06/27/2011. FINDINGS: Breast composition: The glandular tissue is heterogeneously dense. Postsurgical changes are redemonstrated in the 12 o'clock position of the left breast. A radial sclerosing lesion at the site of the surgery is less dense on today's examination. No developing masses or suspicious calcifications are seen. There is no skin thickening or nipple retraction in the right breast. Ale Tanner-Laurent OCEANOLOGIST, SENIOR SOFTWARE SYSTEMS ENGINEER IMG MAMMO ORD ERABLES Final Result from Last 3 Months or Most Recently Relevant to Health Maintenance Additional Health Concerns Infection Onset Date Last Indicated MRSA Comment:03/25/15 Jlernesto @ [facility] 03/27/2015 03/27/2015 Insurance MEDICAID [facility] MEDICAID [place] MEDICARE C [facility] Advance Directives * Full Code (Latest Code Status on File) Date Activated Date Inactivated Comments 06/03/2018 1:11 AM 06/03/2018 2:44 PM CPR-Full T reatment: FULL ARREST: Attempt Resuscitation/CPR wit intubation and mechanical ventilation. PRE-ARREST: Use entire range of life support measures to stabilize the patient. * Full Code Date Activated Date Inactivated Comments 03/25/2015 6:02 PM 03/27/2015 1:47 PM Full Code: FULL ARREST: Attempt Resuscitation/CPR and use intubation and mechanical ventilation as indicated. PRE-ARREST: Use all measures to stabilize patient. Care Teams Tank Car Mechanic Relationship Specialty Start Date End Date Shamika Russell MD [address] [facility] [address] [place] [address] PCP - General Family Medicine 12/12/16 Esa Ga MD Customer Success Representative Cardiovascular Disease - Cardiology 04/27/15
[2024-11-23 16:52] LABS: Hemoglobin A1C 7.4 % (<5.7)
== END 2024-11-23 11:55 | disposition home or self-care (01) ==
PROVIDERS: PCP Physician Assistant; Visit Provider Hospitalist
DX: I12.9 Hypertensive chronic kidney disease with stage 1 through stage 4 chronic kidney disease, or unspecified chronic kidney disease (principal); N18.30 Chronic kidney disease, stage 3 unspecified
CPT/HCPCS: 36415; 83036